=== PATIENT | male | born 1965 | race African-American/Black ===

== ENCOUNTER 2021-10-03 10:00 | Observation (INO) ==
[2021-10-03] MEDS ORDERED: HYDROmorphone 1 MG/1 ML SYRINGE IV STA ×2 (10:33→19:12)
[2021-10-03] MEDS ORDERED: DIPH/TET/ACEL PERT BOOSTER VACCINE 0.5 ML VIAL IM ONE (10:33)
[2021-10-03] MEDS ORDERED: hydrALAZINE 20 MG/1 ML VIAL ONE (10:40)
[2021-10-03] MEDS ORDERED: hydrALAZINE 20 MG/1 ML VIAL IV STA (11:00)
[2021-10-03 11:01] LABS: Alanine Aminotransferase 77 U/L (16-61); Albumin 3.6 G/DL (3.4-5.0); Alkaline Phosphatase 84 U/L (45-117); Aspartate Amino Transferase 273 U/L (0-37); Blood Urea Nitrogen 13 MG/DL (7-18); Calcium 9.2 MG/DL (8.5-10.1); Carbon Dioxide 23 MMOL/L (21-32); Estimated Glom Filtration Rate 126 ML/MIN; Glucose 100 MG/DL (74-106); Osmolality,Calculated 280.3 MOS/KG (273-304); Potassium 3.6 MMOL/L (3.5-5.1); Sodium 141 MMOL/L (136-145); Total Protein 8.6 G/DL (6.4-8.2)
[2021-10-03 11:02] LABS: Basophils # 0.1 10*3/uL (0.0-0.2); Basophils % 0.5 % (0.0-0.8); Eosinophils % 0.1 % (0.00-10.9); Hematocrit 42.1 VOL% (42.0-52.0); Immature Granulocytes % 0.3 %; Immature Granulocytes Absolute 0.03 #; Lymphocytes # 2.3 10*3/uL (1.4-4.0); Lymphocytes % 24.2 % (21.2-54.2); Mean Corpuscular HGB Conc 33.3 GM/DL (32-36); Mean Corpuscular Volume 94.2 FL (87-102); Mean Platelet Volume 10.1 FL (9.6-12.0); Monocytes % 8.8 % (1.7-12.7); Neutrophils % 66.1 % (38.7-73.9); Platelet Count 294 T/CUMM (130-400); Red Blood Count 4.47 MC/CUMM (3.8-5.5); Red Cell Distribution Width 15.2 % (9.3-17.3); White Blood Count 9.7 T/CUMM (4-12)
[2021-10-03 11:39] LABS: PT Patient Result 11.1 SECS (10.5-12.0)
[2021-10-03] MEDS ORDERED: ACETAMINOPHEN 325 MG TABLET PO PRN (14:22)
[2021-10-03] MEDS ORDERED: ONDANSETRON 4 MG/2 ML VIAL IV PRN (14:22)
[2021-10-03] MEDS ORDERED: SIMETHICONE CHEW 125 MG TABLET PO PRN (14:22)
[2021-10-03] MEDS ORDERED: GLUCAGON 1 MG VIAL IM PRN (14:22)
[2021-10-03] MEDS ORDERED: LACTULOSE 20 GM/30 ML UDCUP PO PRN (14:22)
[2021-10-03] MEDS ORDERED: IBUPROFEN 200 MG TABLET PO PRN (14:22)
[2021-10-03] MEDS ORDERED: DOCUSATE SODIUM 100 MG CAPSULE PO PRN (14:22)
[2021-10-03] MEDS ORDERED: DEXTROSE 10% 250 ML BAG IV PRN (14:34)
[2021-10-03] MEDS ORDERED: ENOXAPARIN 40 MG/0.4 ML SYRINGE SUBCUT SCH (15:00)
[2021-10-03] MEDS ORDERED: OXACILLIN 500 MG in SODIUM CHLORIDE 0.9% 100 ML IV SCH (15:00)
[2021-10-03 15:03] LABS: Thyroid Stimulating Hormone 1.82 uIU/ml (0.358-3.74)
[2021-10-03] MEDS: MORPHINE 4 MG/1 ML VIAL IV PRN ×3 (15:15→23:38)
[2021-10-03] MEDS: SODIUM CHLORIDE 0.9% 1,000 ML IV SCH (15:30)
[2021-10-03] MEDS ORDERED: LORazepam 2 MG/1 ML VIAL IV PRN (16:25)
[2021-10-03 17:35] LABS: Bacteria,Urine Occasional /HPF (Few); Hyaline Casts,Urine 12 /LPF (0-3); Mucus,Urine Moderate /LPF (Occasional); RBC,Urine 10 /HPF (0-4); Squamous Epithelial Cell,Urine Occasional /HPF (0-10)
[2021-10-03 17:37] LABS: Bilirubin,Urine Small mg/dL (Negative); Blood, Urine Trace mg/dL (Negative); Glucose,Urine (UA) Negative (Negative); Ketones,Urine >160 mg/dL (Negative); Nitrite,Urine Negative (Negative); Protein,Urine 100 mg/dL (Negative); Urine Appearance Slightly Cloudy (Clear); Urine Color Dark Yellow (Yellow); Urine Urobilinogen 0.2 eU/dL (<2.0); Urine pH 5.5 (4.5-8.0)
[2021-10-03 17:38] LABS: Urine Specific Gravity 1.023 (1.001-1.035)
[2021-10-03] MEDS: hydrALAZINE 20 MG/1 ML VIAL IV PRN (21:15)
[2021-10-04] MEDS: hydrALAZINE 20 MG/1 ML VIAL IV PRN ×2 (01:03→05:45)
[2021-10-04] MEDS: SODIUM CHLORIDE 0.9% 1,000 ML IV SCH ×2 (01:11→06:05)
[2021-10-04] MEDS: MORPHINE 4 MG/1 ML VIAL IV PRN (05:09)
[2021-10-04 05:34] LABS: Basophils % 0.5 % (0.0-0.8); Eosinophils % 0.3 % (0.00-10.9); Hematocrit 35.8 VOL% (42.0-52.0); Hemoglobin 11.8 GM/DL (14.0-18.0); Immature Granulocytes % 0.3 %; Immature Granulocytes Absolute 0.02 #; Lymphocytes # 1.4 10*3/uL (1.4-4.0); Lymphocytes % 17.6 % (21.2-54.2); Mean Corpuscular Volume 95.7 FL (87-102); Mean Platelet Volume 10.4 FL (9.6-12.0); Monocytes % 12.3 % (1.7-12.7); Platelet Count 247 T/CUMM (130-400); Red Blood Count 3.74 MC/CUMM (3.8-5.5); Red Cell Distribution Width 15.1 % (9.3-17.3); White Blood Count 7.8 T/CUMM (4-12)
[2021-10-04 05:47] LABS: Albumin 2.8 G/DL (3.4-5.0); Bilirubin,Total 1.3 MG/DL (0.20-1.00); Calcium 8.8 MG/DL (8.5-10.1); Osmolality,Calculated 272.8 MOS/KG (273-304); Potassium 3.8 MMOL/L (3.5-5.1); Total Protein 7.3 G/DL (6.4-8.2)
[2021-10-04] MEDS ORDERED: PANTOPRAZOLE 40 MG TABLET PO SCH (09:00)
[2021-10-04 10:09] LABS: Hepatitis B Core IgM Quant 0.15 Index; Hepatitis B Surface Ag Quant 0.18 Index; Hepatitis B Surface Ag Result Non-Reactive (NonReactive); Hepatitis C Virus Ab Quant 0.02 Index; Hepatitis C Virus Ab Result Non-Reactive (NonReactive)
[2021-10-04] MEDS ORDERED: LOSARTAN 50 MG TABLET PO SCH (12:30)
[2021-10-04] MEDS ORDERED: valACYclovir 500 MG TABLET PO SCH ×2 (12:30→15:00)
[2021-10-04 12:34] VITALS: BP 176/92
[2021-10-05] MEDS ORDERED: MULTIVITAMIN (CENTRUM) TABLET PO SCH (09:00)
[2021-10-05] MEDS ORDERED: LOSARTAN/HCTZ 50-12.5 MG TABLET PO SCH (09:00)
[2021-10-05] MEDS ORDERED: FOLIC ACID 1 MG TABLET PO SCH (09:00)
[2021-10-05] MEDS ORDERED: THIAMINE 100 MG TABLET PO SCH (09:00)
[2021-10-06 09:51] LABS: Specimen Source RIGHT ARM
== END 2021-10-04 14:04 | disposition home or self-care (01) ==
LOC: N.ED 10:00 → N.EDINP 14:22 → SUATTDRO 14:22 → INTOOBSV 14:22 → N.TELEN 10-04 00:42
PROVIDERS: ADMIT Internal Medicine; ATTEND Internal Medicine